=== PATIENT | female | born 1960 | race Caucasian/White ===

== ENCOUNTER 2023-03-31 18:15 | Observation (INO) | payer MEDICARE, SELFPAY ==
[2023-03-31] VITALS (17 sets, daily range): BP systolic 115–177; BP diastolic 62–98; PULSE 68–112; RESP 12–20; TEMP 36.6–38.2; O2SAT 88–96; BMI 43.9
--- NOTE | 2023-03-31 | IMM_PTH ---
PATIENT: OWEN DELACRUZ LOC: [facility] U#:[id number] AGE/SX: 63/F ROOM: [facility] RE03/31/[address]: Dr. Aida Larios MD : 1960 BED: 1 DIS: 04/01/2023 SPEC #: [id number] RECD: 04/05/23 09:30 STATUS: ENDER REQ #: [id number] OMAR: 03/31/23 00:[address]: Aida Larios DEPT: IMMUNOHISTOCHEMISTRY RECD BY: Whitley George ENTERED: 04/05/23 09:31 SP TYPE: IMMUNO OTHR DR: MD Dr. Castro Campuzano, DO MD Dr. Anitha Singleton MD Dr. Achintya Singh, MD Dr. Autumn L White, MD Dr. Mary Catherine Sementi, DO Dr. Xu Lee, DO MD Aravind Ayers MD Dr. Eric Haus, MD Dr. Eric Jopperi, DO MD Dr. Scott Mcdaniels MD Dr. James Mooney, MD Dr. Jonathan Vogt, DO Dr. Ashley Robertson, DO Dr. Chente Hong, DO MD Dr. Mello Sanchez MD Dr. Prakash Chand, MD Dr. Paul Nielsen, MD Dr. Paige Pierce, MD Dr. Ryan Burkholder, MD Jessica Franklin, MAJOR CASE DETECTIVE-C HOLLY Tinajero Tissues: B - Left breast, NOS Procedures: E-CAD (initial) CALPONIN-1 (add) CK8 (add) P40 (add) PHYSICIAN & INSTITUTION [address] [address] SPECIMEN INFORMATION: Tissue Source: B - Left breast Clinical Info: Chronic back pain, breast hypertrophy Specimen Number: [id number] CPT code: 96373, 03506 x3 METHODOLOGY: Deparaffinized sections of prefer/formalin-fixed tissue or PAP/DQ stained slides are incubated with monoclonal/polyclonal antibodies/oligonucleotide probes. Localization is made via biotin free immunoperoxidase method. Appropriate controls are performed and reacted as expected. Results on target cell population are indicated in the following table: RESULTS: ANTIBODY / CLONE RESULT Block B6 E-Cad (ECH-6) positive CK8 ([id number]) positive Calponin-1 (GF143W) positive P40 (BC28) positive, basal cells These tests were developed and their performance characteristics determined by [facility]. They may not have been cleared or approved by the U.S. Food and Drug Administration. The FDA has determined that such clearance or approval is not necessary. The above immunohistochemical/dualISH markers are ordered and reviewed by the Pathologist. INTERPRETATION: Reji. Left breast, reduction mammoplasty: Focal intraductal hyperplasia without atypia. AM:jessica 04/05/2023
[2023-03-31] MEDS: Lactated Ringers 1,000 ML 15 ML IV ×2 (08:45→16:16)
[2023-03-31 09:06] LABS: Prothrombin Time (Protime)PT. 13.2 SECONDS (11.7-14.9)
--- NOTE | 2023-03-31 09:23 | PCM.HP.BLA ---
History and Physical Date of Admission: 03/31/23 Interim Note: The patient is examined and there are no changes to the H&P dated 03/14/2023. Informed consent is obtained for bilateral breast reduction. She is marked in the preop holding area prior to surgery. Assessment & Plan Assessment/Plan (1) Chronic back pain: (2) Breast hypertrophy: PLAN: Plan We will proceed with bilateral breast reduction.
--- NOTE | 2023-03-31 09:25 | BR_PTH ---
PATIENT: OWEN DELACRUZ LOC: [facility] U#:[id number] AGE/SX: 63/F ROOM: [facility] RE03/31/[address]: Dr. Aida Larios MD : 1960 BED: 1 DIS: 04/01/2023 SPEC #: [id number] RECD: 03/31/23 15:26 STATUS: ENDER REOnofre #: [id number] OMAR: 03/31/23 09:[address]: Aida Larios DEPT: SURGICAL PATHOLOGY RECD BY: Ayala Quiroz ENTERED: 04/01/23 08:02 SP TYPE: MAMOPLASTY OTHR DR: MD Dr. Castro Campuzano, DO MD Dr. Anitha Singleton MD Dr. Achintya Singh, MD Dr. Autumn L White, MD Dr. Mary Catherine Sementi, DO Dr. Xu Lee, DO MD Aravind Ayers MD Dr. Eric Haus, MD Dr. Ifijen Oleghe, MD Dr. Joseph Agyepong, MD Dr. James Mooney, MD Dr. Jonathan Vogt, DO Dr. Ashley Robertson, DO Dr. Chente Hong, DO MD Dr. Mello Sanchez MD Dr. Prakash Chand, MD Dr. Paul Nielsen, MD Dr. Paige Pierce, MD Dr. Ryan Burkholder, MD Jessica Franklin, TIFFANY-HOLLY Dunne Tissues: A - Right breast, NOS B - Left breast, NOS Procedures: Surgery Specimen Level IV HEADER OPERATION: Breast reduction bilateral PRE-OP DIAGNOSIS: Chronic back pain, breast hypertrophy TISSUE SUBMITTED: A - Right breast, total tissue removed 676 gm, B - Left breast, total tissue removed 648 gm MICROSCOPIC DIAGNOSIS A. Right breast, reduction mammoplasty: Nonproliferative fibrocystic change. Skin with no pathologic change. B. Left breast, reduction mammoplasty: Nonproliferative fibrocystic change. Skin with no pathologic change. Intraductal papilloma. Focal intraductal hyperplasia without atypia. AM:jessica 04/04/2023 COMMENT B. Immunohistochemistry ([id number]) supports the above diagnosis. Case has been reviewed in consultation with Dr. Bush who concurs with the above diagnosis. IDC:SJ MICROSCOPIC DESCRIPTION Slides are reviewed. GROSS DESCRIPTION A - Received in fixative is one container labeled with the patient's name and designated right breast. The specimen consists of multiple pieces of fibroadipose tissue with a few of the pieces showing nguyen-white skin, weighing in aggregate 676 gm (weighed in OR) and measuring in aggregate 22.0 x 21.0 x 6.0 cm. No skin lesion is identified. Sections reveal yellow adipose cut surfaces mixed with scant fibrous areas. No mass lesion is identified. Commissioned Police Officer sections are submitted in six cassettes. Cassette 1 contains the skin piece. B - Received in fixative is one container labeled with the patient's name and designated left breast. The specimen consists of multiple pieces of fibroadipose tissue with a few of the pieces showing nguyen-white skin, weighing in aggregate 648 gm (weighed in OR) and measuring in aggregate 22.0 x 18.0 x 6.0 cm. No skin lesion is identified. Sections reveal yellow adipose cut surfaces mixed with scant fibrous areas. No mass lesion is identified. Commissioned Police Officer sections are submitted in six cassettes. Cassette 1 contains the skin piece. / SJ:rg 04/01/2023 TC: CPT: 19612 x2
[2023-03-31] MEDS: Cefazolin 2 GM in 0.9% Normal Saline (100mL Bag) 100 ML IV (10:15)
[2023-03-31] MEDS: Epinephrine (1 mg/ml) 1 MG/ML VIAL (10:47)
[2023-03-31] MEDS: Gentamicin 80 MG/2 ML Vial (10:50)
[2023-03-31] MEDS: Bupivacaine 0.25% 30 ML Vial (15:03)
--- NOTE | 2023-03-31 15:23 | DCINST_ITS ---
Discharge Instructions Diet Discharge Diet: No restrictions Activity Additional Activity Instructions:: Keep back elevated (recliner position) to reduce swelling and bruising. Follow the instructions given in the office. Follow Up Care Please Follow Up With: Aida Larios MD When: next week as scheduled Test Results: Test results from this visit will be discussed in further detail at your follow- up appointment, if applicable. Discharge Plan Admission Attending Provider: Aida Larios Primary Care Provider: Pete Olivarez Discharge Orders/Prescriptions Prescriptions: No Action carbidopa-levodopa 25-100 mg tablet 2 tab PO 5X/DAY Patient Comments: TAKE 3 TABLETS BY MOUTH IN THE MORNING, 2 TABLETS AT NOON, 3 TABLETS AT 4PM, 2 TABLETS AT BEDTIME Rx Instructions: orally QID; montelukast 10 mg tablet 10 mg PO QHS Patient Comments: TAKE 1 TABLET BY MOUTH AT BEDTIME donepezil 5 mg tablet 5 mg PO DAILY Patient Comments: TAKE 1 TABLET BY MOUTH EVERY DAY pramipexole 0.75 mg tablet 0.75 mg PO QHS Patient Comments: Take 1 tablet by mouth every evening pantoprazole 40 mg tablet,delayed release (DR/EC) 40 mg PO DAILY escitalopram oxalate 20 mg tablet 40 mg PO QHS Patient Comments: TAKE 1 AND 1/2 TABLETS BY MOUTH EVERY DAY albuterol sulfate [Ventolin HFA] 90 mcg/actuation HFA aerosol inhaler 2 puff inhalation Q6H PRN (Reason: shortness of breath or wheezing) Patient Comments: INHALE 2 PUFFS EVERY 4 TO 6 HOURS NEEDED FOR COUGH, WHEEZE OR SHORTNESS OF BREATH. USE WITH VORTEX SPACER losartan-hydrochlorothiazide [Hyzaar] 100-25 mg tablet 1 tab PO DAILY fluticasone furoate-vilanterol [Breo Ellipta] 100-25 mcg/dose blister with device 1 inh inhalation DAILY Referrals / Follow Up: Pete Olivarez MD [Primary Care Provider] - Aida Larios MD [Med Staff - Active Staff] - Disposition Disposition (needs filled in before D/C Order can be placed): Home, Self Care
--- NOTE | 2023-03-31 15:29 | PCM.OPRPT ---
Problems Associated Problem List Diagnoses (1) Chronic back pain: (2) Breast hypertrophy: Report of Operation Date of Procedure: 03/31/23 Pre-Operative Diagnosis: Bilateral breast hypertrophy, neck and back pain Post-Operative Diagnosis: same Surgery/Procedure Performed:: Bilateral breast reduction (right?676 gram, left?648 g) Surgeon: Aida Larios blogs manager: MELISSA KRAMERinformation technology professor Type of Anesthesia: General Specimen's removed: Bilateral breast tissue Description of Procedure: The procedure breast reduction had been thoroughly reviewed with the patient and informed consent was obtained. The potential risk and complications of surgery have been reviewed which include but are not exclusive of bleeding, infection, pain, numbness, asymmetry, scar tissue, skin necrosis, the need for further surgery, DVT, and even . She is marked in the preop holding area prior to surgery. The patient is brought to the operating room and placed under general anesthesia in the supine position. Care is taken to pad all pressure points, apply sequential compression stockings, a Jalloh catheter, and a warming blanket. The breast and chest are prepped and draped in the usual sterile fashion. We initially began with incising all the incisions. Following this, the pedicle was de-epithelialized. The medial and lateral inferior aspects of the breast were then removed with argon coagulation for dissection. The pedicle is then from the upper flap and the upper flap maintains a thickness of approximately 2 cm. The pedicle is then trimmed in order to allow to comfortably fit beneath the upper flap. The wound is irrigated with antibiotic solution and checked for hemostasis which is controlled with argon coagulation. After assuring meticulous hemostasis, the breast is infolded and tacked together with silk suture and skin clips. With a satisfactory size and shape noted, Vicryl sutures are initially placed to tack the deep tissue together followed by a 3 layer closure using a V-Loc suture. Approximately 5 cm from the inframammary crease, an opening is made for the nipple areola and this is brought out through the incision. It is tacked in place using interrupted nylon sutures. All skin edges were then approximated with a running subcuticular V-Loc suture. The identical procedure was performed on the opposite side. Following this, quarter percent plain Marcaine is injected along the incisions. The incisions are dressed with Xeroform and fluff gauze and she is placed in a surgery bra. She tolerated the procedure well and was taken to the recovery area in an awake and stable condition. Needle and sponge counts are correct. Complications None Admit VTE Documentation VTE Mechan Device Prophylaxis: SCD's
[2023-03-31] MEDS: Ipratropium/Albuterol Sulfate 3 ML AMPUL.NEB INHALATION (16:17)
[2023-03-31] MEDS: Acetaminophen 500 MG Tablet 1000 MG PO (16:59)
--- NOTE | 2023-03-31 17:45 | RAD_ITS ---
STUDY: X-RAY CHEST REASON FOR EXAM: Female, 63 years old. HYPOXIA POST OP TECHNIQUE: PA and lateral views of the chest. The images are under penetrated. COMPARISON: None. FINDINGS: There is a hazy appearance of the lungs. The vascular markings are mildly prominent. There is a suggestion of a superficial clinical research monitor snap or clothing snaps overlying the mid aspect of the neck soft tissues. The lungs are clear and expanded. There is no demonstrated pleural abnormality. There is mild cardiac enlargement. Normal mediastinum and clemencia. Normal visualized pulmonary arteries. Normal visualized aortic arch and descending thoracic aorta. Normal visualized thoracic spine. Normal visualized ribs, clavicles, and shoulders. There is no demonstrated abnormality of the visualized soft tissue structures of the upper abdomen. RAD/Chest PA and Lateral IMPRESSION: Mild cardiac enlargement. Similar mild vascular congestion. Electronically Signed: Saundra Ríos MD at 18:17 EDT ,
--- NOTE | 2023-03-31 17:50 | CPS ---
STARTED CPAP OF 10 IN PACU.
--- NOTE | 2023-03-31 17:57 | PN_ITS ---
Progress Note Pt with a hx of obstructive sleep apnea, hypoventilation syndrome, and restrictive sleep apnea. She wears a c-pap at home. She believes her typical O2 sats are about 92%. She recieved clearance for surgery from her pcp. She denies having a hatchery attendant in recent times. She had an unremarkable breast reduction surgery. In recovery and post-op area had O2 sats that drifted to the mid 80's repeatedly. She had a resp. tx and O2 without significant improvement over several hours of observation. Discussed with anesthesia and the hospitalist. Will admit for observation with consult to Hospitalist for medical management.
--- NOTE | 2023-03-31 18:39 | PCM.CONS.GEN ---
Assessment & Plan Assessment/Plan (1) Postoperative hypoxia: (2) Fever: PLAN: Plan Postoperative hypoxia -With preoperative mild cough and congestion could be attributed to viral illness versus postoperative atelectasis versus hypoventilation related to narcotics and history of CIERRA/obesity -ABG is pending -Check respiratory viral panel -Check COVID and flu swab -Scheduled albuterol treatments with history of asthma -Continue CPAP to maintain oxygen sats greater than 92% -Incentive spirometry -Pep therapy with Acapella 10 times every 2 hours while awake -Encourage mobility as able Fever -Low-grade in the PACU -Tmax was 100.7 -Check respiratory viral panel -Check COVID-19 and flu nasal swab -As needed Tylenol Postop day 1 breast reduction surgery -Management per primary service GERD -Continue home PPI Parkinson's disease -Continue carbidopa levodopa Mild cognitive impairment -Continue home Aricept Asthma/allergies -Continue home Breo Ellipta -Continue home Singulair -Scheduled albuterol as noted above Hypertension -Continue home losartan/HCTZ Restless leg syndrome -Continue home Mirapex CIERRA -Patient utilizes CPAP nocturnally and with naps with 10 cm of Hg -Continue for now continuously as noted above until sats remained stable Morbid obesity -BMI is 43.9 -Recommend weight loss -Complicates treatment, prognosis, outcomes DVT prophylaxis -Per primary HPI Consult Data Date of Consult: 03/31/23 HPI Narrative Reason for Consultation: Postoperative hypoxia HPI Narrative: OWEN DELACRUZ, is a 63 F who presented to [facility] on 03/31/2023 for an elective breast reduction surgery. Preoperatively she complained of some nasal congestion and cough which she attributed to allergies but was otherwise feeling well. Surgery went without any incident however postoperatively she was hypoxic. Surgery was done at 330 and I was paged about 6 PM and the patient was still having some hypoxia. She is morbidly obese and has a history of sleep apnea. She was extubated to nasal cannula only. Postoperative x-ray shows some mild vascular congestion but was otherwise unremarkable. Penetration of the x-ray is poor due to body habitus. I evaluated her postoperatively and the PACU and she was on CPAP at 25% FiO2 with EPAP of 10 mmHg which is her home settings. Oxygen saturations at that time were 92%. I increased her EPAP to 12 mmHg and oxygen saturation improved to 96%. Patient denied any fever or chills at home. Stated she only had a cough the day prior and that day. She denies any other symptoms and was mentating well. is at the bedside and states she has a history of asthma for which she takes Breo and as needed albuterol. She is also on chronic Singulair for her history of allergies. She was given general anesthesia but has not really received any postoperative narcotics. Patient denied any history of tobacco abuse. [facility] Medical History Anxiety and depression Arthritis Asthma Back pain Bilateral breast cysts Blackout Bone fracture Chronic bronchitis Difficulty swallowing Easy bruising Fatty liver Gastric reflux Headache, migraine Hearing problem History of deviated nasal septum History of echocardiogram History of edema History of hiatal hernia History of pain when walking Hypertension Injury of head and neck Irritable bowel syndrome Leg cramps Loss of hearing Low iron Neuropathy Parkinson's disease Polycystic ovarian syndrome Post-menopausal Restless legs Shortness of breath on exertion Stress incontinence Syncope Vision problem Home Medications albuterol sulfate 90 mcg/actuation aerosol inhaler (Ventolin HFA) 2 puff inhalation Q6H PRN shortness of breath or wheezing 01/11/23 [History Last Taken 03/31/23 06:15] carbidopa 25 mg-levodopa 100 mg tablet 2 tab PO 5X/DAY 01/11/23 [History Last Taken 03/31/23 06:15] donepezil 5 mg tablet 5 mg PO DAILY 01/11/23 [History Last Taken 03/31/23 06:15] escitalopram oxalate 20 mg tablet 40 mg PO QHS 01/11/23 [History Last Taken Unknown] montelukast 10 mg tablet 10 mg PO QHS 01/11/23 [History Last Taken Unknown] pantoprazole 40 mg tablet,delayed release 40 mg PO DAILY 01/11/23 [History Last Taken 03/31/23 06:15] pramipexole 0.75 mg tablet 0.75 mg PO QHS 01/11/23 [History Last Taken Unknown] losartan 100 mg-hydrochlorothiazide 25 mg tablet (Hyzaar) 1 tab PO DAILY 03/02/23 [History Last Taken 03/31/23 06:15] fluticasone furoate 100 mcg-vilanterol 25 mcg/dose inhalation powder (Breo Ellipta) 1 inh inhalation DAILY 03/16/23 [History Last Taken 03/31/23 06:15] Allergy/AdvReac Type Severity Reaction Status Date / Time latex Allergy Rash Verified 03/16/23 14:53 Penicillins Allergy Rash Verified 03/16/23 14:53 prochlorperazine Allergy Anaphylaxis Verified 03/16/23 14:53 [From Compazine] Family History Other Anesthesia complication Anxiety Arthritis Asthma Bowel disease Diabetes Heart disease Melanoma Respiratory disease Surgical History History of Achilles tendon repair History of cataract surgery History of esophagogastroduodenoscopy (EGD) History of hysterectomy History of knee surgery History of lumpectomy of left breast History of nasal septoplasty History of tonsillectomy and adenoidectomy Hx of colonoscopy Hx of vein stripping Social History Smoking Status: Never smoker alcohol intake: never substance use type: does not use additional social history: No use or aspirin or ibuprofen. ROS Constitutional Constitutional: Denies anorexia, change in weight, chills, fatigue, fever(s), malaise, night sweats, weakness or other Eyes Eyes: Denies blurry vision, change in eye color, change in vision, discharge from eye(s), double vision, erythema, eye pain, loss of vision or other ENT HEENT: Reports nasal congestion; Denies abnormal hearing, dysphagia, ear pain, epistaxis, headache(s), hearing loss, nasal discharge, post nasal drip, sinus pressure, sore throat or other Cardiovascular Cardiovascular: Denies chest pain, claudication, dyspnea on exertion, edema, lightheadedness, orthopnea, palpitations, paroxysmal nocturnal dyspnea, rapid heart rate, syncope or other Respiratory/Chest Respiratory/Chest: Reports cough; Denies dyspnea, excessive phlegm production, hemoptysis, productive cough, shortness of breath at rest, shortness of breath with exertion, wheezing or other Gastrointestinal Gastrointestinal: Denies abdominal pain, coffee ground emesis, constipation, diarrhea, dyspepsia, hematemesis, hematochezia, loose stools, melena, nausea, vomiting or other Genitourinary Genitourinary: Denies burning urination, difficulty urinating, dysuria, hematuria, nocturia, urinary frequency, urinary hesitancy, urinary incontinence, urinary urgency or other Musculoskeletal Musculoskeletal: Reports back pain, joint pain and joint stiffness; Denies arthralgias, joint swelling, myalgias, neck pain or other Neurologic Neurologic: Reports tremor(s); Denies abnormal gait, abnormal speech, confusion, disequilibrium, dizziness, focal weakness, headache(s), numbness, paresthesias, seizure-like activity, seizures, syncope, tingling or other Psychiatric Psychiatric: Reports depression; Denies anxiety, homicidal ideation, suicidal ideation or other Endocrine Endocrinology: Denies change in body appearance, cold intolerance, excessive sweating, heat intolerance, polydipsia, polyuria or other Hematologic/Lymphatic Hematologic/Lymphatic: Denies anemia, easy bleeding, easy bruising, lymphadenopathy or other Allergic/Immunologic Allergic/Immunologic: Reports rhinitis and asthma; Denies hives, eczemia or other Physical Exam Const alert, oriented x3, no apparent distress and well nourished; Negative for average body habitus or healthy appearing Constitutional Narrative: Morbidly obese, white female, sitting up in bed, nursing staff at the bedside in the PACU, at the bedside, patient is currently on CPAP and appears comfortable General Appearance: cooperative HEENT normocephalic, head/scalp atraumatic and hearing grossly normal bilaterally HEENT Narrative: Mallampati 3-4, no thrush, mucous membranes are slightly dry Resp normal respiratory effort, no retractions and no use of accessory muscles Resp Narrative: Diminished but sounds clear at this time-exam is limited due to body habitus and positioning Auscultation: Negative for rales, rhonchi or wheezes Cardio regular rate, regular rhythm, S1 normal heart sound, S2 normal heart sound, no murmurs, no rub, no gallops and no clicks Cardio Narrative: Distant heart tones due to body habitus GI normal to inspection, nondistended, normoactive bowel sounds, soft to palpation and non-tender Extremity no clubbing, cyanosis or edema Extremity Narrative: Pedal pulses are 2+ Neuro oriented x3, moves all extremities and no focal motor deficits Psych affect normal Psych Narrative: Patient appears to interact appropriately eye contact is good Lab / Micro Data 03/31/23 18:30 Labs: Laboratory Results - last 24 hr 03/31/23 08:45: PT 13.2, INR 1.0, APTT 27.0 Radiology Impression Chest X-Ray 03/31/23 17:45 IMPRESSION: Mild cardiac enlargement. Similar mild vascular congestion. Electronically Signed: Saundra Ríos MD at 18:17 EDT , Charges/Coding Visit Charges Inpatient E&M: 16144 Init Hosp L2
[2023-03-31 18:49] LABS: Allen Test Positive; Base Excess 1 mmol/L (-2 to +2); Bicarbonate 26.2 mmol/L (22-26); Blood Gas Specimen Type ART; Mode Not entered; O2 Delivery Device CPAP; PEEP 10; PO2 108 mmHG (75-100); SITE R Radial; SO2 98 % (95-99); Total Carbon Dioxide 28 mmol/L; pCO2 45.7 mmHg (35-45); pH 7.37 (7.35-7.45)
[2023-03-31 18:59] LABS: ALB/GLOB Ratio 0.8 RATIO (0.9-2.4); AST(SGOT) 45 U/L (15-37); Alanine Aminotransfer ALT/SGPT 46 U/L (13-56); Albumin, Serum 3.1 g/dL (3.2-5.0); Alkaline Phosphatase 82 U/L (45-117); Anion Gap 10 (5-15); BUN 10 mg/dL (7-18); BUN/Creat Ratio 10.5 RATIO (10-20); Chloride 101 mmol/L (98-107); Creatinine, Serum 0.95 mg/dL (0.55-1.02); EST Glomerular Filtration Rate 63 mL/min (>60); Est Glom Filt Rate - Afr Amer 76 mL/min (>60); Estimated Creatinine Clearance 50.98 ml/min; Glucose 203 mg/dL (74-106); Potassium 3.8 mmol/L (3.5-5.1); Protein, Total 7.1 g/dL (6.4-8.2); Sodium Level 137 mmol/L (136-145)
--- NOTE | 2023-03-31 19:56 | SUR.PHASEII ---
PT WAITING FOR ROOM TO BE CLEAN ON PCU. REMAINS ON CPAP. PT EATING ICE CHIPS.
[2023-03-31 22:13] LABS: Absolute Lymphocyte Count 0.76 X10^3/uL (0.83-4.51); Absolute Neutrophil Count 10.7 X10^3/uL (2.0-7.7); Basophil# 0.02 X10^3/uL; Basophil% 0.2 % (0-1); Hematocrit 43.3 % (37-47); Hemoglobin 13.9 g/dL (12.0-15.0); Lymphocyte # 0.76 X10^3/ul (0.83-4.51); Lymphocyte % 6.2 % (19-41); Mean Corp Hgb Conc 32.1 g/dL (32-36); Mean Corpuscular Hgb 29.8 pg (27.0-32.0); Mean Corpuscular Volume 92.9 fL (81-99); Mean Platelet Vol. 10.5 fl (6.2-12.0); Monocyte# 0.82 X10^3/uL; Monocyte% 6.6 % (0-10); NRBC Flagged by Analyzer 0 % (0-5); Neutrophil # 10.67 X10^3/uL (2.7-7.7); Neutrophil % 86.4 % (47-70); Platelet Count 267 K/mm3 (150-450); RBC Distribution Width SD 47.3 fl (35.1-43.9); Red Blood Count 4.66 M/mm3 (4.2-5.4); White Blood Count 12.3 K/mm3 (4.4-11.0)
[2023-03-31] MEDS: Carbidopa/Levodopa 25/100 Tablet PO (22:36)
[2023-03-31] MEDS: Cefazolin 1 GM/50 ML BAG IV (22:36)
[2023-03-31] MEDS: Montelukast 10 MG Tablet PO (22:36)
[2023-03-31] MEDS: Furosemide 20 MG/2 ML VIAL IV (22:36)
[2023-03-31] MEDS: Escitalopram Oxalate 20 MG Tablet 40 MG PO (22:37)
[2023-03-31] MEDS: Pramipexole Di-HCl 0.25 MG Tablet 0.75 MG PO (22:37)
[2023-04-01] VITALS (13 sets, daily range): BP systolic 121–145; BP diastolic 61–75; PULSE 65–91; RESP 12–20; TEMP 36.7–36.8; O2SAT 88–97; BMI 43.9
[2023-04-01] MEDS: Acetaminophen 325 MG Tablet 650 MG PO (05:40)
[2023-04-01] MEDS: Cefazolin 1 GM/50 ML BAG IV (05:41)
[2023-04-01] MEDS: Carbidopa/Levodopa 25/100 Tablet PO (05:41)
[2023-04-01] MEDS: Budesonide Respules 0.5 MG/2 ML AMPUL.NEB. INHALATION (07:21)
[2023-04-01] MEDS: Albuterol 2.5 MG/3 ML VIAL.NEB. INHALATION (07:21)
[2023-04-01 07:41] LABS: Absolute Lymphocyte Count 1.05 X10^3/uL (0.83-4.51); Basophil# 0.03 X10^3/uL; Basophil% 0.3 % (0-1); Eosinophil# 0.01 X10^3/uL; Eosinophils% 0.1 % (0-5); Hematocrit 43.5 % (37-47); Hemoglobin 13.7 g/dL (12.0-15.0); Lymphocyte # 1.05 X10^3/ul (0.83-4.51); Lymphocyte % 10.4 % (19-41); Mean Corp Hgb Conc 31.5 g/dL (32-36); Mean Corpuscular Hgb 29.4 pg (27.0-32.0); Mean Corpuscular Volume 93.3 fL (81-99); Mean Platelet Vol. 10.5 fl (6.2-12.0); Monocyte# 0.86 X10^3/uL; Monocyte% 8.6 % (0-10); NRBC Flagged by Analyzer 0 % (0-5); Neutrophil # 7.97 X10^3/uL (2.7-7.7); Neutrophil % 79.3 % (47-70); Platelet Count 259 K/mm3 (150-450); RBC Distribution Width CV 14.1 % (11.6-14.6); RBC Distribution Width SD 48.1 fl (35.1-43.9); Red Blood Count 4.66 M/mm3 (4.2-5.4); White Blood Count 10.1 K/mm3 (4.4-11.0)
[2023-04-01 08:05] LABS: Anion Gap 0 (5-15); BUN 10 mg/dL (7-18); BUN/Creat Ratio 14.2 RATIO (10-20); Calcium,Total 8.7 mg/dL (8.5-10.1); Chloride 103 mmol/L (98-107); EST Glomerular Filtration Rate 89 mL/min (>60); Est Glom Filt Rate - Afr Amer 108 mL/min (>60); Estimated Creatinine Clearance 69.19 ml/min; Glucose 132 mg/dL (74-106); Potassium 3.3 mmol/L (3.5-5.1); Sodium Level 134 mmol/L (136-145)
--- NOTE | 2023-04-01 08:39 | PN.HOSP_ITS ---
Reason for Visit Reason for Visit: Diagnoses Other chronic pain (03/31/23) Dorsalgia, unspecified (03/31/23) Hypertrophy of breast (03/31/23) Hypoxemia (03/31/23) Fever, unspecified (03/31/23) Encounter for other preprocedural examination (03/31/23) Other specified postprocedural states (03/31/23) Subjective Subjective Breathing well. Does feel congested. Requesting prednisone as well as Flonase. Objective Data Objective Data Vital Signs: Vital Signs Temp Pulse Resp BP Pulse Ox O2 Del Method O2 Flow Rate 36.7 C 72 16 141/75 H 94 Room Air 3 04/01/23 05:48 04/01/23 06:38 04/01/23 06:38 04/01/23 05:48 04/01/23 06:50 04/01/23 06:50 03/31/23 23:25 FiO2 30 04/01/23 03:33 Oxygen Flow Rate (L/min) 3 Oxygen Delivery Method Room Air Weight: 116 kg Body Mass Index (BMI) 43.9 Intake & Output: Intake and Output for Last 24 Hours 03/30/23 03/31/23 04/01/23 23:59 23:59 23:59 Intake Total 3160 / 3160 50 / 50 Output Total 1850 / 1850 400 / 400 Balance 1310 / 1310 -350 / -350 Lab / Micro Data 04/01/23 01:59 04/01/23 01:59 Labs: Laboratory Results - last 24 hr 03/31/23 08:45: PT 13.2, INR 1.0, APTT 27.0 03/31/23 18:30: Sodium 137, Potassium 3.8, Chloride 101, Carbon Dioxide 26.0, An ion Gap 10, BUN 10, Creatinine 0.95, Estim Creat Clear Calc 50.98, Est GFR (MDRD) Af Amer 76, Est GFR (MDRD) Non-Af 63, BUN/Creatinine Ratio 10.5, Glucose 203 H, Calcium 9.0, Total Bilirubin 0.70, AST 45 H, ALT 46, Alkaline Phosphatase 82, Total Protein 7.1, Albumin 3.1 L, Globulin 4.0, Albumin/Globulin Ratio 0.8 L 03/31/23 21:59: WBC 12.3 H, RBC 4.66, Hgb 13.9, Hct 43.3, MCV 92.9, MCH 29.8, MCHC 32.1, RDW Std Deviation 47.3 H, RDW Coeff of Merrick 14.0, Plt Count 267, MPV 10.5, Immature Gran % (Auto) 0.600, Neut % (Auto) 86.4 H, Lymph % (Auto) 6.2 L, [place] % (Auto) 6.6, Eos % (Auto) 0.0, Baso % (Auto) 0.2, Absolute Neuts (auto) 10.7 H, Absolute Lymphs (auto) 0.76 L, Nucleated RBC % 0, B-Natriuretic Peptide 69.0 04/01/23 01:59: WBC 10.1, RBC 4.66, Hgb 13.7, Hct 43.5, MCV 93.3, MCH 29.4, MCHC 31.5 L, RDW Std Deviation 48.1 H, RDW Coeff of [place]rick 14.1, Plt Count 259, MPV 10.5 , Immature Gran % (Auto) 1.300 H, Neut % (Auto) 79.3 H, Lymph % (Auto) 10.4 L, [place] % (Auto) 8.6, Eos % (Auto) 0.1, Baso % (Auto) 0.3, Absolute Neuts (auto) 8.0 H, Absolute Lymphs (auto) 1.05, Nucleated RBC % 0, Sodium 134 L, Potassium 3.3 L, Chloride 103, Carbon Dioxide 31.0, Anion Gap 0 L, BUN 10, Creatinine 0.70, Estim Creat Clear Calc 69.19, Est GFR (MDRD) Af Amer 108, Est GFR (MDRD) Non-Af 89, BUN/Creatinine Ratio 14.2, Glucose 132 H, Calcium 8.7 Micro: Microbiology 03/31/23 22:52 Mucosa - Nasopharyngeal Respiratory Panel (PCR) - Final 03/31/23 22:52 Nasal Secretion SARS-CoV-2 & FLU Antigen (Rapid) - Final ABG Data ABG results: ABG 03/31/23 18:46 Specimen Type ART Sample Site R Radial pH 7.37 Bicarbonate Actual 26.2 H Total CO2 28 Base Excess 1 O2 Saturation 98 O2 % 25.0 ABG pCO2 45.7 H ABG pO2 108 H Travis Test Positive O2 Delivery Device CPAP Vent Mode Not entered POC PEEP 10 Radiography Diagnostic Testing: Radiology Impression Chest X-Ray 03/31/23 17:45 IMPRESSION: Mild cardiac enlargement. Similar mild vascular congestion. Electronically Signed: Saundra Ríos MD at 18:17 EDT , Physical Exam Const alert and no apparent distress HEENT head/scalp atraumatic and moist oral mucous membranes Resp normal respiratory effort, no retractions, no use of accessory muscles and clear to auscultation bilaterally Cardio regular rate, regular rhythm, S1 normal heart sound and S2 normal heart sound GI normal to inspection, nondistended, normoactive bowel sounds, soft to palpation, non-tender and non-distended Assessment & Plan Assessment/Plan (1) Postoperative hypoxia: PLAN: Postoperative atelectasis versus hypoventilation related to narcotics and history of CIERRA/obesity ABG pH 7.37, pCO2 45.7, pO2 108 while on CPAP Respiratory panel, COVID 19 and influenza negative CXR may show pulmonary vascular congestions Continue PEP Check ambulatory pulse ox Since resolved. Patient was 95% on ambulation. May be related with patient's chronic medical issues regards to obesity hypoventilation, sleep apnea but also possibly compounded by her seasonal allergies and bronchitis. I do not hear any audible wheezing at this time but patient will be on prednisone burst 40 mg as well as Flonase and patient can also take Mucinex DM which would not require prescription. Patient medically stable for discharge. (2) Fever: PLAN: Leukocytosis resolved No additional work up at this time. PLAN: Plan Postop breast reduction surgery-Management per primary service Chronic conditions: * GERD-Continue home PPI * Parkinson's disease-Continue carbidopa levodopa * Mild cognitive impairment-Continue home Aricept * Asthma/allergies-Continue home Breo Ellipta-Continue home Singulair-Scheduled albuterol as noted above * Hypertension-Continue home losartan/HCTZ * Restless leg syndrome-Continue home Mirapex * CIERRA-Patient utilizes CPAP nocturnally and with naps with 10 cm of Hg-Continue for now continuously as noted above until sats remained stable * Morbid obesity-BMI is 43.9-Recommend weight loss-Complicates treatment, prognosis, outcomes DVT prophylaxis -Per primary Charges/Coding Visit Charges Inpatient E&M: 51561 Subs Hosp L2
--- NOTE | 2023-04-01 08:44 | DCINST_ITS ---
Discharge Instructions Diet Discharge Diet: No restrictions Activity Additional Activity Instructions:: Keep back elevated (recliner position) to reduce swelling and bruising. Follow the instructions given in the office. Follow Up Care Please Follow Up With: Aida Larios MD Test Results: Test results from this visit will be discussed in further detail at your follow- up appointment, if applicable. Discharge Plan Admission Admit Date/Time: 03/31/23 18:15 Attending Provider: Aida Larios Primary Care Provider: Pete Olivarez Consulting Providers: Aida Larios; Juliana Hammonds; Castro Whitmore; Anitha Jeong; Anitha Da Silva; Kishore Mcduffie; Vanessa Roper; Zeina Garcia; Xu Lee; Xu Wyman; Aravind Ho; Vicente Vanegas; Scott Ames; Cuong Wheeler; Bala Galindo; Ashley Robertson; Chente Hong; Le Buckner; Mello Hand; Anderson Daniels; Roberto Nguyen; Gloria Whittington; Param Hodge; Jill Villa [employer]; Dennis Garduno; Pete Blancas Discharge Orders/Prescriptions Prescriptions: No Action carbidopa-levodopa 25-100 mg tablet 2 tab PO 5X/DAY Patient Comments: TAKE 3 TABLETS BY MOUTH IN THE MORNING, 2 TABLETS AT NOON, 3 TABLETS AT 4PM, 2 TABLETS AT BEDTIME Rx Instructions: orally QID; montelukast 10 mg tablet 10 mg PO QHS Patient Comments: TAKE 1 TABLET BY MOUTH AT BEDTIME donepezil 5 mg tablet 5 mg PO DAILY Patient Comments: TAKE 1 TABLET BY MOUTH EVERY DAY pramipexole 0.75 mg tablet 0.75 mg PO QHS Patient Comments: Take 1 tablet by mouth every evening pantoprazole 40 mg tablet,delayed release (DR/EC) 40 mg PO DAILY escitalopram oxalate 20 mg tablet 40 mg PO QHS Patient Comments: TAKE 1 AND 1/2 TABLETS BY MOUTH EVERY DAY albuterol sulfate [Ventolin HFA] 90 mcg/actuation HFA aerosol inhaler 2 puff inhalation Q6H PRN (Reason: shortness of breath or wheezing) Patient Comments: INHALE 2 PUFFS EVERY 4 TO 6 HOURS NEEDED FOR COUGH, WHEEZE OR SHORTNESS OF BREATH. USE WITH VORTEX SPACER losartan-hydrochlorothiazide [Hyzaar] 100-25 mg tablet 1 tab PO DAILY fluticasone furoate-vilanterol [Breo Ellipta] 100-25 mcg/dose blister with device 1 inh inhalation DAILY Referrals / Follow Up: Pete Olivarez MD [Primary Care Provider] - Aida Larios MD [Med Staff - Active Staff] - Disposition Discharge Orders: Discharge Patient (Routine); Ordered 03/31/23 Ordered By: Dr. Aida Larios
--- NOTE | 2023-04-01 11:20 | PCM.PN.BLA ---
Progress Note POD #1 s/p breast reduction Patient examined status post breast reduction surgery. She denies any problems. She continues to have a cough. The breast incisions are well approximated. She has slightly more swelling on the right side than the left and some venous congestion of the right N/A. The patient is cautioned about the excessive coughing and hypoxia affecting wound healing. From a postsurgical standpoint, she is satisfactory to be discharged whenever cleared from a medical/respiratory standpoint.
== END 2023-04-01 11:26 | disposition home or self-care (01) ==
LOC: SDC 21:21 → PCU 21:21
PROVIDERS: Anesthesiology; Internal Medicine; Admitting Provider Plastic Surgery; Referring Provider Plastic Surgery; Visit Provider Plastic Surgery
PROC: 0H0U0ZZ Alteration of Left Breast, Open Approach (ICD-10-PCS; CPT 19318; principal; 2023-03-31 09:10)
DX: N62 Hypertrophy of breast (principal); E66.01 Morbid (severe) obesity due to excess calories; Z68.41 Body mass index [BMI] 40.0-44.9, adult; G89.29 Other chronic pain; R09.02 Hypoxemia; I10 Essential (primary) hypertension; M54.9 Dorsalgia, unspecified; K21.9 Gastro-esophageal reflux disease without esophagitis; J45.20 Mild intermittent asthma, uncomplicated; G47.33 Obstructive sleep apnea (adult) (pediatric); Z79.899 Other long term (current) drug therapy; R13.10 Dysphagia, unspecified; R06.02 Shortness of breath; R50.9 Fever, unspecified; I87.2 Venous insufficiency (chronic) (peripheral); G20.A1 Parkinson's disease without dyskinesia, without mention of fluctuations; K58.2 Mixed irritable bowel syndrome; M54.2 Cervicalgia; M25.511 Pain in right shoulder; M25.512 Pain in left shoulder
CPT/HCPCS: 19318; 00402; 36415; 36600; 71046; 80048; 80053; 82803; 83880; 85025; 85610; 85730; 87428; 87633; 88305; 88341; 88342; 94002; 94640; 94660; 96365; 96366; 96375; 99221; J7120; G0378; J1940; J2405; Q9968